=== PATIENT | male | born 1945 | race Caucasian/White ===

== ENCOUNTER → 2019-02-03 | Outpatient (CLI) | payer MEDICARE ==
[~2019-02-03] MED LIST: ALPRAZOLAM2 MG PO; ARTHROTEC EC 71 EACH PO; CARBINOXAMINE MA4 MG PO; DIPHENOXYLATE-1 EACH PO; HYDROCODON-ACE1 EA11 PO; LEVOTHYROXINE150 MCG PO; MULTIVITAMINS1 EAC8 PO; NASONEX17 GM; OMEGA 3 PO; PANTOPRAZOLE SO40 MG PO; PROMETHAZINE HC25 M1 PO; RED YEAST RICE PO; TOPROL XL25 MG PO; WAL-DRYL ALLERG25 MG PO; ZOLPIDEM TARTRA10 MG PO
--- NOTE | 2019-02-03 17:16 | Diagnostic Imaging Report ---
EXAM: CT Abdomen WITHOUT contrast INDICATION: Fall. Trauma. Lower abdominal pain. Prior hernia surgery COMPARISON: None. TECHNIQUE: Abdomen was scanned utilizing a multidetector helical scanner without administration of IV contrast. Absence of intravenous contrast decreases sensitivity for detection of focal lesions and vascular pathology. Coronal and sagittal reformations were obtained. Routine protocol was performed. IV CONTRAST: None ORAL CONTRAST: Water COMPLICATIONS: None RADIATION DOSE: Total DLP: 489.34 mGy*cm Estimated effective dose: (DLP x 0.015 x size factor) mSv CTDIvol has been reviewed. It is below the limits set by the Radiation Protocol Committee (RPC). Dose modulation, iterative reconstruction, and/or weight based adjustment of the mA/kV was utilized to reduce the radiation dose to as low as reasonably achievable. FINDINGS: LINES and TUBES: None. LOWER THORAX: Chronic appearing change at the lung bases. HEPATOBILIARY: No focal hepatic lesions. No biliary ductal dilation. GALLBLADDER: No radio-opaque stones or sludge. No wall thickening. SPLEEN: No splenomegaly. PANCREAS: No focal masses or ductal dilatation. ADRENALS: No adrenal nodules KIDNEYS/URETERS: No hydronephrosis. Likely simple cyst in the lower pole of the right kidney. No stones. GI TRACT: No abnormal distention, wall thickening, or evidence of bowel obstruction. Scattered diverticulosis without evidence of diverticulitis. LYMPH NODES: No lymphadenopathy. VESSELS: Scattered vascular calcifications. Mild aneurysmal dilatation of the infrarenal abdominal aorta with a maximal diameter of 3.1 cm. PERITONEUM / RETROPERITONEUM: No free air or fluid. BONES: Scattered degenerative change. Bone island in the right iliac bone. SOFT TISSUES: Unremarkable. IMPRESSION: 1. No acute CT abnormality in the abdomen. Signed by: Dr. Everardo Robledo M.D. on 02/03/2019 5:13 PM
--- NOTE | 2019-02-03 21:38 | Diagnostic Imaging Report ---
EXAMINATION: Head CT without contrast. HISTORY:Fall, headache. COMPARISON:None. TECHNIQUE: Multidetector axial images were obtained from the foramen magnum to the vertex without contrast. The images were reconstructed using brain and bone algorithms. Thin section brain images were reformatted into coronal and sagittal planes. Dose modulation, iterative reconstruction, and/or weight based adjustment of the mA/kV was utilized to reduce the radiation dose to as low as reasonably achievable. Intravenous contrast: None IMAGE QUALITY: Acceptable. FINDINGS: Skull/scalp: No lytic or blastic. lesions. No surgical changes. Parenchyma: Nonspecific bilateral frontoparietal patchy white matter hypodensity are likely related to small vessel ischemic changes. Focal hypodensity in left subinsular region, left putamen and anterior limb of left internal capsule represents old lacunar infarct. No acute hemorrhage, mass or acute major vascular territorial infarct. Arteries: No density suggestive of thrombosis. Dural sinuses: No abnormal density suggestive of thrombosis. Ventricles: No hydrocephalus or displacement. Extra-axial spaces: No abnormal density. Brain volume: Generalized age-related cerebral volume loss. Craniocervical junction: No mass, Chiari malformation, or basilar invagination. Sella: No mass. Paranasal/mastoid sinuses: Imaged portions unremarkable. IMPRESSION: 1. No acute posttraumatic intracranial abnormality. 2. Mild supratentorial white matter microvascular ischemic changes. 3. Generalized age-related cerebral volume loss. Signed by: Dr. Amara Wolfe M.D. on 02/03/2019 9:35 PM
== END ==
LOC: CT 15:23
PROVIDERS: ATTEND Family Medicine
DX: R07.82 Intercostal pain (principal); G44.89 Other headache syndrome
CPT/HCPCS: 70450; 74150

== ENCOUNTER → 2019-03-17 | Outpatient (CLI) | payer MEDICARE ==
--- NOTE | 2019-03-17 16:29 | Diagnostic Imaging Report ---
EXAMINATION: CT scan of the chest without contrast. TECHNIQUE: Spiral CT images of the chest were performed from the lung apices to the level of the adrenal glands. No intravenous contrast was administered per referring physician request. Coronal and sagittal reformatted images were obtained. COMPARISON: CT abdomen without contrast 02/03/2019, CT chest without contrast 01/25/2013 CLINICAL HISTORY:Status post fall 3 months ago, substernal chest pain DISCUSSION: ABSENCE OF INTRAVENOUS CONTRAST DECREASES SENSITIVITY FOR DETECTION OF FOCAL LESIONS AND VASCULAR PATHOLOGY. LINES/TUBES: None. LUNGS AND AIRWAYS: Moderate upper lobe predominant emphysematous changes. Coarse juxtapleural reticular opacities in the lower lobes, right middle lobe, and lingula. Trachea, mainstem bronchi, and central lobar and segmental bronchi are patent. PLEURA: No pneumothorax or pleural effusions. HEART AND MEDIASTINUM: Visualized portions of the thyroid gland appear normal. Mild ectasia of the descending thoracic aorta (4.2 cm). Pulmonary outflow tract is of normal caliber. Atherosclerotic coronary artery calcifications. LYMPH NODES: No axillary, hilar, or mediastinal lymphadenopathy. No mediastinal hematoma. ABDOMEN: Visualized portions of the liver, spleen, pancreas, and adrenals are unremarkable. Celiac axis calcifications. BONES AND SOFT TISSUES: No acute osseous abnormalities. Degenerative disc changes of the cervical spine. IMPRESSION: No acute thoracic CT abnormalities. No sternal fracture or mediastinal hematoma. Upper lobe predominant emphysematous changes. Scattered foci of post infectious or inflammatory scar in the lower lobes, lingula, and right middle lobe. 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 Signed by: Dr. Marco Multani M.D. on 03/17/2019 4:26 PM
== END ==
LOC: CT 15:26
PROVIDERS: ATTEND Family Medicine
DX: R51 Headache (principal); R07.82 Intercostal pain
CPT/HCPCS: 71250

== ENCOUNTER 2019-05-23 12:03 | Emergency (ER) | payer MEDICARE ==
[~2019-05-23] VITALS: Ht 185.4 cm; Wt 75.7 kg
--- OUTSIDE RECORDS SUMMARY | 2019-05-23 12:07 | XMS REPORT ---
[facility] Address Unknown Phone Unavailable Care Team Providers Care Program And Research Coordinator Name Role Phone KAREN PASCAL Unavailable Unavailable Problems This patient has no known problems. Allergies, Adverse Reactions, Alerts This patient has no known allergies or adverse reactions. Medications This patient has no known medications. Results Test Description Test Time Test Comments Text Results Atomic Results Result Comments CT CHEST WO 2019-03-17 16:14:00 [place] [address] Patient Name: SHANTI WILHELM MR #: [id number] : 1945 Age/Sex: 73/M Req #: [id number] Adm Physician: Ordered by: KAREN PASCAL DO Report #: [id number] Location: CT Room/Bed: Procedure: [id number] CT/CT CHEST WO Exam Date: Exam Time: REPORT STATUS: Signed EXAMINATION: CT scan of the chest without contrast. TECHNIQUE: Spiral CT images of the chest were performed from the lung apices to the level of the adrenal glands. No intravenous contrast was administered per referring physician request. Coronal and sagittal reformatted images were obtained. COMPARISON: CT abdomen without contrast 02/03/2019, CT chest without contrast 01/25/2013 CLINICAL HISTORY:Status post fall 3 months ago, substernal chest pain DISCUSSION: ABSENCE OF INTRAVENOUS CONTRAST DECREASES SENSITIVITY FOR DETECTION OF FOCAL LESIONS AND VASCULAR PATHOLOGY. LINES/TUBES: None. LUNGS AND AIRWAYS: Moderate upper lobe predominant emphysematous changes. Coarse juxtapleural reticular opacities in the lower lobes, right middle lobe, and lingula. Trachea, mainstem bronchi, and central lobar and segmental bronchi are patent. PLEURA: No pneumothorax or pleural effusions. HEART AND MEDIASTINUM: Visualized portions of the thyroid gland appear normal. Mild ectasia of the descending thoracic aorta (4.2 cm). Pulmonary outflow tract is of normal caliber. Atherosclerotic coronary artery calcifications. LYMPH NODES: No axillary, hilar, or mediastinal lymphadenopathy. No mediastinal hematoma. ABDOMEN: Visualized portions of the liver, spleen, pancreas, and adrenals are unremarkable. Celiac axis calcifications. BONES AND SOFT TISSUES: No acute osseous abnormalities. Degenerative disc changes of the cervical spine. IMPRESSION: No acute thoracic CT abnormalities. No sternal fracture or mediastinal hematoma. Upper lobe predominant emphysematous changes. Scattered foci of post infectious or inflammatory scar in the lower lobes, lingula, and right middle lobe. 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 Signed by: Dr. Karen Talbert M.D. on 03/17/2019 4:26 PM Dictated By: KAREN TALBERT MD 162 Transcribed By: DORCAS on 03/17/19 1626 COPY TO: KAREN PASCAL DO CT BRAIN WO 2019-02-03 21:31:00 [place] [address] Patient Name: SHANTI WILHELM MR #: [id number] : 1945 Age/Sex: 73/M Req #: [id number] Adm Physician: Ordered by: KAREN PASCAL DO Report #: [id number] Location: CT Room/Bed: Procedure: [id number] CT/CT BRAIN WO Exam Date: 02/03/19 Exam Time: 1635 REPORT STATUS: Signed EXAMINATION: Head CT without contrast. HISTORY:Fall, headache. COMPARISON:None. TECHNIQUE: Multidetector axial images were obtained from the foramen magnum to the vertex without contrast. The images were reconstructed using brain and bone algorithms. Thin section brain images were reformatted into coronal and sagittal planes. Dose modulation, iterative reconstruction, and/or weight based adjustment of the mA/kV was utilized to reduce the radiation dose to as low as reasonably achievable. Intravenous contrast: None IMAGE QUALITY: Acceptable. FINDINGS: Skull/scalp: No lytic or blastic. lesions. No surgical changes. Parenchyma: Nonspecific bilateral frontoparietal patchy white matter hypodensity are likely related to small vessel ischemic changes. Focal hypodensity in left subinsular region, left putamen and anterior limb of left internal capsule represents old lacunar infarct. No acute hemorrhage, mass or acute major vascular territorial infarct. Arteries: No density suggestive of thrombosis. Dural sinuses: No abnormal density suggestive of thrombosis. Ventricles: No hydrocephalus or displacement. Extra- axial spaces: No abnormal density. Brain volume: Generalized age-related cerebral volume loss. Craniocervical junction: No mass, Chiari malformation, or basilar invagination. Sella: No mass. Paranasal/mastoid sinuses: Imaged portions unremarkable. IMPRESSION: 1. No acute posttraumatic intracranial abnormality. 2. Mild supratentorial white matter microvascular ischemic changes. 3. Generalized age-related cer ebral volume loss. Signed by: Dr. Amara Wolfe M.D. on 02/03/2019 9:35 PM Dictated By: AMARA WOLFE MD 34 Transcribed By: DORCAS on 02/03/192134 COPY TO: KAREN PASCAL DO CT ABDOMEN WO 2019-02-03 17:08:00 [place] [address] Patient Name: SHANTI WILHELM MR #: [id number] : 1945 Age/Sex: 73/M Req #: [id number] Adm Physician: Ordered by: KAREN PASCAL DO Report #: [id number] Location: CT Room/Bed: Procedure: [id number] CT/CT ABDOMEN WO Exam Date: 02/03/19 Exam Time: 1641 REPORT STATUS: Signed EXAM: CT Abdomen WITHOUT contrast INDICATION: Fall. Trauma . Lower abdominal pain. Prior hernia surgery COMPARISON: None. TECHNIQUE: Abdomen was scanned utilizing a multidetector helical scanner without administration of IV contrast. Absence of intravenous contrast decreases sensitivity for detection of focal lesions and vascular pathology. Coronal and sagittal reformations were obtained. Routine protocol was performed. IV CONTRAST: None ORAL CONTRAST: Water COMPLICATIONS: None RADIATION DOSE: Total DLP: 489.34 mGy*cm Estimated effective dose: (DLP x 0.015 x size factor) mSv CTDIvol has been reviewed. It is below the limits set by the Radiation Protocol Committee (RPC). Dose modulation, iterative reconstruction, and/or weight based adjustment of the mA/kV was utilized to reduce the radiation dose to as low as reasonably achievable. FINDINGS: LINES and TUBES: None. LOWER THORAX: Chronic appearing change at the lung bases. HEPATOBILIARY: No focal hepatic lesions. No biliary ductal dilation. GALLBLADDER: No radio- opaque stones or sludge. No wall thickening. SPLEEN: No splenomegaly. PANCREAS: No focal masses or ductal dilatation. ADRENALS: No adrenal nodules KIDNEYS/URETERS: No hydronephrosis. Likely simple cyst in the lower pole of the right kidney. No stones. GI TRACT: No abnormal distention, wall thickening, or evidence of bowel obstruction. Scattered diverticulosis without evidence of diverticulitis. LYMPH NODES: No lymphadenopathy. VESSELS: Scattered vascular calcifications. Mild aneurysmal dilatation of the infrarenal abdominal aorta with a maximal diameter of 3.1 cm. PERITONEUM / RETROPERITONEUM: No free air or fluid. BONES: Scattered degenerative change. Bone island in the right iliac bone. SOFT TISSUES: Unremarkable. IMPRESSION: 1. No acute CT abnormality in the abdomen. Signed by: Dr. Everardo Robledo M.D. on 02/03/2019 5:13 PM Dictated By: EVERARDO ROBLEDO MD, MD 12 Transcribed By: DORCAS on 02/03/191712 COPY TO: KAREN PASCAL DO
--- OUTSIDE RECORDS SUMMARY | 2019-05-23 12:07 | XMS REPORT | Clinical Summary ---
Author Author [facility] Address Unknown Phone Unavailable Care Team Providers Care Musculoskeletal Physician Name Role Phone MckenzieMarco toribio DO PCP Allergies Comments Active Allergy Reactions Severity Noted Date Throat swellling Afrin (Pseudoephedrine) Itching, High 01/06/2018 Swelling Throat closes up Aspirin Anaphylaxis High 01/06/2018 As claimed can take Zpak, not the generic. itching Azithromycin Rash Low 12/08/2017 Throat swelling Ciprofloxacin Other (See High 08/11/2017 Comments) sweating Clindamycin Other (See 08/11/2017 Comments), GI Intolerance Rash, itching, swelling of face. Codeine Swelling High 08/11/2017 rash Meperidine High 08/11/2017 Muscle pain Fenofibrate Other (See 08/11/2017 Comments) Muscle pain Gemfibrozil Other (See 08/11/2017 Comments), GI Intolerance Contrast media Iodine Swelling High 01/06/2018 Rash all over Latex Swelling 08/11/2017 Swelling in throat Levofloxacin Swelling 12/08/2017 Throat swelling Lidocaine Swelling High 08/11/2017 Muscle pain Atorvastatin Other (See 08/11/2017 Comments) Nsaids (Non-Steroidal GI 02/07/2018 Anti-Inflammatory Drug) Intolerance histalix- dizziness, depomedrol- shaking, nervousness Depo medrol- throat swelling Other Swelling High 01/06/2018 rash Penicillins 08/11/2017 Throat swelling, difficulty swallowing Propantheline High 08/11/2017 Throat swells Sygzqkp-Pmu-Uqm Reductase GI 12/08/2017 Inhibitors Intolerance Tramadol GI 08/11/2017 Intolerance Medications End Date Status Medication Sig Dispensed Refills Start Date Active levothyroxine (SYNTHROID, Take 137 mcg 0 LEVOXYL) 137 mcg tablet by mouth every morning. Active ALPRAZolam (XANAX) 1 MG Take 1 mg by 0 tablet mouth 3 (three) times a day as needed. Active zolpidem (AMBIEN) 10 mg Take 10 mg by 0 tablet mouth nightly as needed for sleep. Active pantoprazole (PROTONIX) Take 40 mg by 0 40 MG EC tablet mouth as needed. Active promethazine (PHENERGAN) Take 25 mg by 0 25 MG tablet mouth every 6 (six) hours as needed for nausea or vomiting. Active diphenoxylate-atropine Take 1 tablet 0 (LOMOTIL) 2.5-0.025 mg by mouth 4 per tablet (four) times a day as needed for diarrhea. Active multivitamin (THERAGRAN) Take 1 tablet 0 tablet by mouth daily. Active OMEGA-3S/DHA/EPA/FISH OIL Take by mouth 0 (OMEGA 3 ORAL) daily. Active RED YEAST RICE ORAL Take by mouth 0 daily. Active CHOLECALCIFEROL, VITAMIN Take 6,000 0 D3, (VITAMIN D3 ORAL) Units by mouth daily. Active chlorzoxazone (PARAFON Take 500 mg 0 FORTE) 500 mg tablet by mouth 3 (three) times a day as needed for muscle spasms. Active clemastine (TAVIST) 2.68 Take 2.68 mg 0 mg tablet by mouth daily as needed. Active LACTOBACILLUS ACIDOPHILUS Take by mouth 0 (PROBIOTIC ORAL) as needed. Active CALCIUM CARB,GLUC/MAG Take by mouth 0 OX,GLUC (CALCIUM daily. MAGNESIUM ORAL) Active Problems Problem Noted Date COPD (chronic obstructive pulmonary disease) 04/19/2018 Overview: does not bother him anymore, difficulty breathing at night Bilateral inguinal hernia 02/07/2018 GERD (gastroesophageal reflux disease) 12/07/2017 Cerebral infarction 12/07/2017 Former smoker 12/07/2017 Overview: stopped 1987 Non-recurrent bilateral inguinal hernia without obstruction or gangrene 08/11/2017 Coronary artery disease 08/11/2017 Status post coronary artery stent placement 08/11/2017 History of TIA (transient ischemic attack) 08/11/2017 Status post myocardial infarction 08/11/2017 History of B-cell lymphoma 08/11/2017 History of melanoma 08/11/2017 Family History Medical History Relation Name Comments Arrhythmia Brother Heart disease Brother No Known Problems Daughter No Known Problems Daughter Alcohol abuse Father Alzheimer's disease Mother Arthritis Mother Heart disease Mother Hypertension Mother Relation Name Status Comments Brother Alive Daughter Alive Daughter Alive Father Mother Social History Date Tobacco Use Types Packs/Day Years Used Quit: 1986 Former Smoker Cigarettes 3 24 Smokeless Tobacco: Never Used Alcohol Use Drinks/Week oz/Week Comments No Sex Assigned at Date Recorded Not on file Industry Job Start Date Occupation Not on file Not on file Not on file Travel End Travel History Travel Start No recent travel history available. Last Filed Vital Signs Not on file Plan of Treatment Health Maintenance Due Date Last Done Comments COLONOSCOPY SCREENING 1993 SHINGLES VACCINES (#1) 1993 65+ PNEUMOCOCCAL VACCINE 2008 (1 of 2 - PCV13) INFLUENZA VACCINE 05/25/2019 Implants Device Identifier Shelf Expiration Date Model / Serial / Lot Implanted Type Area Manufactur er 10/21/2022 [id number] / / Mesh Hrnia Rpr 2x12in Flat Shet Ppe [employer]in [employer] Soft[employer] - [id number] Mesh or Implanted: Qty: 1 on 02/07/2018 by Arian Santiago MD [employer] Results Not on fileafter 05/22/2018 Insurance Type Payer Benefit Subscriber ID Effective Phone Address Plan / Dates Group HMO AETNA MEDICARE AETNA xxxxxxxx 2016-P MEDICARE resent HMO/PPO [facility] Advance Directives Patient has advance care planning documents, and code status on file. For more i nformation, please contact: [facility] Green [address] [place] [address] Date Inactivated Comments Code Status Date Activated 02/09/2018 4:05 PM Full Code 02/07/2018 11:27 AM Code Status decision reached by: Patient
--- OUTSIDE RECORDS SUMMARY | 2019-05-23 12:14 | XMS REPORT | Clinical Summary ---
Author Author [facility] Address Unknown Phone Unavailable Care Team Providers Care Housing Property Manager Name Role Phone MckenzieMarco toribio DO PCP [...] difficulty swallowing Propantheline High 08/11/2017 Throat swells Zqgtxms-Xbs-Bab Reductase GI 12/08/2017 Inhibitors Intolerance Tramadol GI [...] Lot Implanted Type Area Manufactur er 10/21/2022 [id number] / / Mesh Hrnia Rpr 2x12in Flat Shet Ppe [employer] - [id number] Mesh or Implanted: Qty: 1 on 02/07/2018 by Arian Santiago MD [employer] Results Not on fileafter 05/22/2018 Insurance Type Payer Benefit Subscriber ID Effective Phone Address Plan / Dates Group HMO AETNA MEDICARE AETNA xxxxxxxx 2016-P MEDICARE resent HMO/PPO [facility] Advance Directives Patient has advance care planning documents, and code status on file. For more i nformation, please contact: [facility] Green [address] [place] [place] [address] Date Inactivated Comments Code Status Date Activated 02/09/2018 4:05 PM Full Code 02/07/2018 11:27 AM Code Status decision reached by: Patient
[2019-05-23] MEDS ORDERED: SODIUM CHLORIDE 0.9% 1000ML 1,000 ML IV STA (12:20)
[2019-05-23 12:37] LABS: BASOPHILS # (AUTO) 0.1 (0.0-0.1); BASOPHILS % 0.9 % (0.0-1.0); EOSINOPHILS # (AUTO) 0.2 (0.0-0.4); HEMATOCRIT 48.7 % (38.2-49.6); HEMOGLOBIN 16.1 g/dL (14.0-18.0); LYMPHOCYTES # (AUTO) 0.9 (1.0-3.2); LYMPHOCYTES % 13.7 % (18.0-39.1); MEAN CORPUSCULAR HEMOGLOBIN 30.3 pg (28-32); MEAN CORPUSCULAR HGB CONC 33.1 g/dL (31-35); MEAN CORPUSCULAR VOLUME 91.7 fL (81-99); MONOCYTES # (AUTO) 0.8 (0.2-0.8); MONOCYTES % 12.1 % (4.4-11.3); NEUTROPHILS # (AUTO) 4.7 (2.1-6.9); PLATELET COUNT 217 x10e3/uL (140-360); RED BLOOD COUNT 5.31 x10e6/uL (4.3-5.7); RED CELL DISTRIBUTION WIDTH 12.2 % (11.7-14.4)
[2019-05-23 12:49] LABS: INR 1.02; PROTHROMBIN TIME 13.9 seconds (11.9-14.5)
[2019-05-23 12:50] LABS: PARTIAL THROMBOPLASTIN TIME 31.9 seconds (23.8-35.5)
[2019-05-23 12:58] LABS: ALANINE AMINOTRANSFERASE 12 IU/L (0-55); ALBUMIN 3.9 g/dL (3.5-5.0); ALKALINE PHOSPHATASE 76 IU/L (40-150); BLOOD UREA NITROGEN 13 mg/dL (7-26); BUN/CREATININE RATIO 15 (6-25); CARBON DIOXIDE 25 mmol/L (22-29); CHLORIDE 103 mmol/L (98-107); CREATINE KINASE 39 IU/L (30-200); CREATININE, SERUM 0.89 mg/dL (0.72-1.25); EST GLOMERULAR FILTRATION RATE > 60 ML/MIN (60-); GLUCOSE 98 mg/dL (74-118); LIPASE 23 U/L (8-78); MAGNESIUM 2.5 MG/DL (1.3-2.1); SODIUM 139 mmol/L (136-145)
[2019-05-23 13:17] LABS: THYROID STIMULATING HORMONE 4.933 uIU/mL (0.350-4.940)
[2019-05-23 13:57] LABS: ACETAMINOPHEN < 3 ug/mL (10-30); SALICYLATE < 5.0 mg/dL (0-30)
--- NOTE | 2019-05-23 14:15 | NUR ---
PATIENT AWAKE AND ALERT, ANXIOUS. RESP EVEN AND UNLABORED. SKIN WARM AND DRY. NO SIGNS OF ACUTE DISTRESS NOTED AT THIS TIME. EDUCATED PATIENT AND FAMILY ON THE CURRENT PLAN CARE,RADIOLODY RESULTS PENDING,VERBALIZED UNDERSTANDING.
[2019-05-23] MEDS ORDERED: ONDANSETRON HCL INJ 2MG/ML 2ML 2 MG/ML VIAL IV PRN (14:30)
[2019-05-23] MEDS ORDERED: SODIUM CHLORIDE 0.9% 1000ML 1,000 ML IV SCH (14:30)
[2019-05-23] MEDS ORDERED: ASPIRIN 81 MG CHEW TAB PO ONE (14:30)
[2019-05-23 14:37] LABS: BILIRUBIN,URINE NEGATIVE (NEGATIVE); CLARITY,URINE SL CLOUDY (CLEAR); COLOR,URINE YELLOW (YELLOW); KETONES,URINE NEGATIVE (NEGATIVE); LEUKOCYTE ESTERASE ,URINE NEGATIVE (NEGATIVE); NITRITE,URINE NEGATIVE (NEGATIVE); PROTEIN,URINE DIPSTICK NEGATIVE (NEGATIVE); URINE UROBILINOGEN 0.2 mg/dL (0.2 - 1)
[2019-05-23 14:43] LABS: AMPHETAMINES SCREEN,URINE NEGATIVE (NEGATIVE); BENZODIAZEPINES SCREEN,URINE POSITIVE (NEGATIVE); PHENCYCLIDINE SCREEN,URINE NEGATIVE (NEGATIVE)
--- NOTE | 2019-05-23 14:43 | Diagnostic Imaging Report ---
History: Left-sided weakness Comparison studies: None Technique: Sagittal T2; axial DWI, FLAIR, MPGR, T1, Coronal FLAIR. Intravenous contrast: None Findings: Scalp: Normal in signal . No masses . Bone marrow: Normal in signal intensity. Extra-axial: No masses, no fluid collections. Brain sulci: Mildly prominent. Ventricles: Minimal effacement of the right lateral ventricle body, the remaining ventricles are normal in size . No hydrocephalus . Parenchyma: T2 hyperintense, T1 hypointense mass at the right sweeney radiata and corpus callosum measuring 2.5 x 2.8 x 4.2 cm (SI-AP-Trans), with surrounding vasogenic edema extending to the precentral region, right posterior limb of internal capsule. No midline shift or herniation Few T-2/flair hyperintensities of the periventricular and deep white matter, most commonly seen with mild chronic microvascular ischemic changes. No hemorrhage, acute or chronic vascular insults. Suprasellar region: No abnormalities. Craniocervical junction: No abnormalities. Patent foramen magnum. No Chiari one malformation. Vessels: Normal flow-voids in the arteries and sinuses. IMPRESSION: 1. 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 The above finding was reported and acknowledged by Dr. Mclean at 2:38 PM 05/23/2019 Signed by: DR Herb Mcnally M.D. on 05/23/2019 6:35 PM
--- OUTSIDE RECORDS SUMMARY | 2019-05-23 14:51 | XMS REPORT | Clinical Summary ---
Author Author [facility] Address Unknown Phone Unavailable Care Team Providers Care Loader Engineer Name Role Phone MckenzieMarco toribio DO PCP [...] difficulty swallowing Propantheline High 08/11/2017 Throat swells Nmrxaih-Hdl-Vfz Reductase GI 12/08/2017 Inhibitors Intolerance Tramadol GI [...] Lot Implanted Type Area Manufactur er 10/21/2022 [id number] / / Mesh Hrnia Rpr 2x12in Flat Shet Ppe [employer] - [id number] Mesh or Implanted: Qty: 1 on 02/07/2018 by Arian Santiago MD [employer] Results Not on fileafter 05/22/2018 Insurance Type Payer Benefit Subscriber ID Effective Phone Address Plan / Dates Group HMO AETNA MEDICARE AETNA xxxxxxxx 2016-P MEDICARE resent HMO/PPO [facility] Advance Directives Patient has advance care planning documents, and code status on file. For more i nformation, please contact: [facility] Green [address] [place] [address] Date Inactivated Comments Code Status Date Activated 02/09/2018 4:05 PM Full Code 02/07/2018 11:27 AM Code Status decision reached by: Patient
[2019-05-23 14:54] LABS: EPITHELIAL CELLS,URINE RARE /LPF
--- NOTE | 2019-05-23 15:00 | Diagnostic Imaging Report ---
EXAMINATION: SP LUMBAR, COMPLETE MIN 4VW INDICATION: Back pain, trauma COMPARISON: CT abdomen pelvis of 02/03/2019 FINDINGS: No acute fracture. Minimal retrolisthesis at L2-3, unchanged from prior abdomen and pelvis CT of 02/03/2019. Mild degenerative changes of the lower lumbar spine. Diffuse atherosclerotic arterial calcifications. Nonobstructive bowel gas pattern. IMPRESSION: No acute osseous injury. Signed by: Travis Bro MD on 05/23/2019 4:03 PM
--- NOTE | 2019-05-23 15:07 | Diagnostic Imaging Report ---
EXAMINATION: CHEST SINGLE (PORTABLE) INDICATION: Trauma COMPARISON: Chest CT of 03/17/2019 FINDINGS: LINES/TUBES:None LUNGS:The lung volumes are low. There is perihilar fullness and indistinctness of the pulmonary vasculature. PLEURA:No pleural effusion or pneumothorax. MEDIASTINUM:The cardiomediastinal silhouette is unchanged in size. Atherosclerotic calcifications of the thoracic aorta. BONES/SOFT TISSUES:No acute osseous injury. ABDOMEN:No free air under the diaphragm. IMPRESSION: Low lung volumes and pulmonary interstitial edema. Signed by: Travis Bro MD on 05/23/2019 3:03 PM
[2019-05-23] MEDS ORDERED: DEXAMETHASONE SOD PHOS 10 MG/1 ML VIAL IV NR (15:15)
--- NOTE | 2019-05-23 15:15 | NUR ---
DR DUMONT AT BEDSIDE FOR RE-EVAL AND DISCUSSING THE CURRENT PLAN OF CARE WITH PATIENT AND , PATIENT TO BE TRANSFER TO [facility] FOR HIGHER LEVEL OF CARE,NEUROSURGERY,VERBALIZED UNDERSTANDING. PATIENT AWAKE AND ALERT, ANXIOUS. RESP EVEN AND UNLABORED. SKIN WARM AND DRY. NO SIGNS OF ACUTE DISTRESS NOTED AT THIS TIME.
[2019-05-23] MEDS ORDERED: GADOBENATE DIMEGLUMINE 0 ML IV ONE (15:25)
--- NOTE | 2019-05-23 15:28 | NUR ---
NOTIFIED MRI PATIENT HAS ALLERGY TO IODINE, SOFTWARE ENGINEER DEVELOPER STATED MRI CONTRAST IS OK TO USE WITH IODINE ALLERGY. OK PER DR DUMONT
--- NOTE | 2019-05-23 15:33 | NUR ---
ULTRASOUND AT BEDSIDE FOR ORDERED ECHO. ECHO D/C BY DR DUMONT AT THIS TIME.
--- NOTE | 2019-05-23 15:40 | NUR ---
AMDISSION ORDERS TO BE D/C PER DR DUMONT, PATIENT TO BE TRANSFERRED FOR HIGHER LEVEL OF CARE.
--- NOTE | 2019-05-23 15:57 | NUR ---
REPORTED CALLED TO [facility], ROOM 2250, SPOKE WITH CHELY GUO. ACCEPTING DOCTOR: DR Ahmet BURTON
[2019-05-23] MEDS ORDERED: HYDROCODONE/APAP 5MG-325MG TAB PO NR (16:00)
--- NOTE | 2019-05-23 16:07 | NUR ---
NOTIFIED [facility] FOR PATIENT TRANSPORT TO [facility] VIA STRETCHER, SPOKE WITH JOSIE, ETA APPROX 45-60 MIN
--- NOTE | 2019-05-23 16:20 | NUR ---
UPDATED PATIENT AND FAMILY ON TRASFER STATUS, ACCEPTED, EMS ETA 45-60MIN, PATIENT STATES, "IM NOT GOING DOWN TOWN... THERE IS NOTHING WRONG WITH ME". PATIENT C/O BACK PAIN, ATTEMPTED TO ADMINISTER ORDERED NORCO TAB, DECLINED NORCO AT THIS TIME. NOTIFIED DR DUMONT.
--- NOTE | 2019-05-23 16:27 | NUR ---
DR DUMONT AT BEDSIDE DISCUSSING RISKS AND BENEFITS OF PATIENT TRANSFER WITH PATIENT AND FAMILY.
--- NOTE | 2019-05-23 17:02 | NUR ---
NOTIFIED DR DUMONT PATIENT C/O LOWER BACK PAIN, REFUSED NORCO, PATIENT STATES HE CAN TAKE MORPHINE AND DENIES MORPHINE ALLERGY. VERBAL ORDER RECEIVED: MORPHINE 2MG IV ONCE AND ZOFRAN 4MG IV ONCE.
[2019-05-23] MEDS ORDERED: MORPHINE SULFATE 2 MG/ML SYR 1ML IV STA (17:04)
[2019-05-23] MEDS ORDERED: ONDANSETRON HCL INJ 2MG/ML 2ML 2 MG/ML VIAL IV STA (17:04)
--- NOTE | 2019-05-23 18:20 | NUR ---
PATIENT AWAKE AND ALERT, CALM AND COOPERATIVE. RESP EVEN AND UNLABORED. SKIN WARM AND DRY. NO SIGNS OF ACUTE DISTESS NOTED AT THIS TIME. PATIENT STATES PAIN "0" AFTER PAIN MEDICATION. PATIENT STATES THAT HE IS CONSENTING TO TRANSFER AT THIS TIME. PATIENT AND FAMILY VERBALIZED UNDERSTANDING OF TRANSFER AND THE CURRENT PLAN OF CARE. DENIES ANY C/O AT THIS TIME.
--- NOTE | 2019-05-23 18:25 | NUR ---
[facility]KE WITH [facility], STATES THAT AN AMBULANCE IN EN ROUTE AT THIS TIME.
--- NOTE | 2019-05-23 19:12 | NUR ---
[facility] AT BEDSIDE FOR PATIENT TANSPORT FOR TRANSFER, DAE TRUONG RN AT BEDSIDE FOR PATIENT TO SIGN CONSENT ON MOT. PATIENT REFUSED TO SIGN MOT, STATES, "I WANNA GO HOME".
--- NOTE | 2019-05-23 19:15 | NUR ---
VERBAL REPORT GIVEN TO JON SANCHEZ.
--- NOTE | 2019-05-23 19:18 | NUR ---
RE-EDUCATED THE PATIENT AND FAMILY ON RISKS AND BENEFITS OF TRANSFER FOR A HIGHER LEVEL OF CARE, PATIENT STATES, "WHAT IF I WANT A SECOND OPINION..I WANT TO GO HOME..HOW AM I GONNA GET HOME". NOTIFIED DAE TRUONG RN SENIOR CONSTRUCTION ESTIMATOR AND DR LINDO. PATIENT STATES THAT HE IS UNSURE OF WHAT DECISION TO MAKE AND STATES THAT HE WOULD LIKE TO DISCUSS THE DICISION WITH HIS BEFORE SIGNING ANYTHING. EDUCATED PATIENT AND FAMILY ON THE RISKS OF LEAVING AGAINST MEDICAL ADVICE AND RISKS AND BENEFITS OF TRANSFER,VERBALIZED UNDERSTANDING.
--- NOTE | 2019-05-23 19:25 | NUR ---
MOT CONSENT SIGNED BY PATIENT AND WITNESSED BY LAURA SON LVN AND DR LINDO.
[2019-05-24] MEDS ORDERED: ASPIRIN 81 MG ENTERIC COATED PO SCH (09:00)
== END 2019-05-23 20:15 | disposition other institution (70) ==
LOC: ER 12:12 → UNDOADMIN 14:30 → ERHOLD 14:30 → UNDODISIN 20:15 → ER 20:15
DX: G93.9 Disorder of brain, unspecified (principal); G93.6 Cerebral edema; K21.9 Gastro-esophageal reflux disease without esophagitis; I10 Essential (primary) hypertension; Z86.73 Personal history of transient ischemic attack (TIA), and cerebral infarction without residual deficits; I25.2 Old myocardial infarction; I48.91 Unspecified atrial fibrillation; Z79.01 Long term (current) use of anticoagulants; M19.90 Unspecified osteoarthritis, unspecified site; W01.0XXA Fall on same level from slipping, tripping and stumbling without subsequent striking against object, initial encounter
CPT/HCPCS: 36415; 70551; 71045; 72110; 80053; 80307; 80320; 80329 ×2; 81001; 82550; 82553; 83690; 83735; 83880; 84443; 84484; 85025; 85610; 85730; 93005; 93880; 99284; J1100; J2270; J2405; J7030